=== PATIENT | male | born 1985 | race Caucasian/White ===

== ENCOUNTER → 2018-09-24 | Outpatient (CLI) | payer MEDICAID ==
[~2018-09-24] MED LIST: DOXY100C37 PO; HYDR-3715 PO; NORC1TAB7 PO
== END ==
LOC: M OUTALCOH 08:12
PROVIDERS: ATTEND Psychiatry & Neurology Psychiatry
DX: F11.20 Opioid dependence, uncomplicated (principal)

== ENCOUNTER → 2019-08-04 | Outpatient (CLI) | payer BC ==
[2019-08-04 12:36] LABS: HEMATOCRIT 47.2 % (42.0-52.0); HEMOGLOBIN 15.9 g/dl (13.5-17.5); MEAN CORPUSCULAR HEMOGLOBIN 31.1 pg (27.0-33.0); MEAN CORPUSCULAR HGB CONC 33.7 g/dl (32.0-36.5); MEAN CORPUSCULAR VOLUME 92.2 fl (80.0-96.0); PLATELET COUNT, AUTOMATED 238 10^3/uL (150-450); RED BLOOD COUNT 5.12 10^6/uL (4.30-6.10); WHITE BLOOD COUNT 10.3 10^3/uL (4.0-10.0)
[2019-08-04 13:07] LABS: ALBUMIN 4.2 GM/DL (3.2-5.2); ALT/SGPT 24 U/L (12-78); BILIRUBIN,TOTAL 0.3 MG/DL (0.2-1.0); BLOOD UREA NITROGEN 9 MG/DL (7-18); CALCIUM LEVEL 9.9 MG/DL (8.5-10.1); CARBON DIOXIDE LEVEL 30 MEQ/L (21-32); CHLORIDE LEVEL 106 MEQ/L (98-107); CREATININE FOR GFR 0.99 MG/DL (0.70-1.30); GLOMERULAR FILTRATION RATE > 60.0 (>60); GLUCOSE, FASTING 89 MG/DL (70-100); POTASSIUM SERUM 4.4 MEQ/L (3.5-5.1); SODIUM LEVEL 140 MEQ/L (136-145); TOTAL PROTEIN 7.3 GM/DL (6.4-8.2)
[2019-08-04 13:54] LABS: CHLAMYDIA DNA AMPLIFICATION NEGATIVE (NEGATIVE); GC DNA AMPLIFICATION NEGATIVE (NEGATIVE)
--- NOTE | 2019-08-05 01:03 | ECGEPIP ---
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
[2019-08-05 10:58] LABS: HEPATITIS B SURFACE ANTIGEN NEGATIVE (NEGATIVE); HEPATITIS C VIRUS ABY INDEX 0.1 INDEX (<0.8); HIV 1&2 SCREEN CENTAUR NEGATIVE (NEGATIVE)
== END ==
LOC: M LAB 11:50
PROVIDERS: ATTEND Family Medicine
DX: F11.20 Opioid dependence, uncomplicated (principal)

== ENCOUNTER → 2020-01-22 | Outpatient (CLI) | payer BC, OTHER ==
[2020-01-22 11:04] LABS: INR 0.92; PROTHROMBIN TIME 12.6 SECONDS (12.5-14.3)
[2020-01-22 12:13] LABS: ALT/SGPT 1605 IU/L (0-32)
[2020-01-22 12:14] LABS: LABILE ALKPHOS 175 U/L; STABLE ALKPHOS 37 U/L
[2020-01-22 12:15] LABS: % LABILE ALKALINE PHOSPHATASE 82.5 %; ALBUMIN 3.8 GM/DL (3.2-5.2); BILIRUBIN,TOTAL 1.3 MG/DL (0.2-1.0)
[2020-01-22 15:41] LABS: HEPATITIS B SURFACE ANTIBODY POSITIVE (POSITIVE); HEPATITIS B SURFACE ANTIGEN NEGATIVE (NEGATIVE); HIV 1&2 SCREEN CENTAUR NEGATIVE (NEGATIVE)
[2020-01-26 16:08] LABS: HEPATITIS A IgG TOTAL Positive (Negative)
== END ==
LOC: M LAB 09:10
PROVIDERS: ATTEND Nurse Practitioner Family
DX: Z11.4 Encounter for screening for human immunodeficiency virus [HIV] (principal); Z11.59 Encounter for screening for other viral diseases; Z91.89 Other specified personal risk factors, not elsewhere classified

== ENCOUNTER → 2020-01-28 | Outpatient (REF) | payer BC, OTHER ==
[2020-01-28 17:59] LABS: ALBUMIN 3.8 GM/DL (3.2-5.2); ALT/SGPT 1308 U/L (12-78); BILIRUBIN,DIRECT 0.5 MG/DL (0.0-0.2); BILIRUBIN,TOTAL 0.9 MG/DL (0.2-1.0)
[2020-01-28 18:01] LABS: HEPATITIS C VIRUS ABY INDEX > 11.0 INDEX (<0.8)
[2020-02-02 03:09] LABS: HEPATITIS C QUANTITATION 474380 IU/mL (.); HEPATITIS C VIRUS GENOTYPE 1b (.)
== END ==
LOC: M SFHCPLAZ 10:44
PROVIDERS: ATTEND Internal Medicine Infectious Disease
DX: B17.10 Acute hepatitis C without hepatic coma (principal)

== ENCOUNTER → 2020-03-24 | Outpatient (REF) | payer OTHER ==
[2020-03-24 14:10] LABS: BILIRUBIN,DIRECT 0.1 MG/DL (0.0-0.2); BILIRUBIN,TOTAL 0.3 MG/DL (0.2-1.0); TOTAL PROTEIN 7.2 GM/DL (6.4-8.2)
[2020-03-25 23:10] LABS: HEPATITIS C QUANTITATION 126930 IU/mL (.)
== END ==
LOC: M SFHCPLAZ 10:57
PROVIDERS: ATTEND Internal Medicine Infectious Disease
DX: B17.10 Acute hepatitis C without hepatic coma (principal)

== ENCOUNTER 2020-10-09 13:16 | Inpatient (IN) | payer OTHER ==
[~2020-10-09] VITALS: Ht 167.6 cm; Wt 59.4 kg
[~2020-10-09 13:16] MED LIST changes: -DOXY100C37 PO; +DOXY1CAP62 PO
[2020-10-09 14:35] LABS: BASO # 0.1 10^3/uL (0.0-0.2); BASO % 0.3 % (0.0-1.0); EOS # 0.1 10^3/uL (0.0-0.5); EOS % 0.4 % (0.0-3.0); HEMATOCRIT 42.1 % (42.0-52.0); HEMOGLOBIN 14.1 g/dl (13.5-17.5); LYMPH # 1.4 10^3/uL (1.5-5.0); LYMPH % 8.1 % (24.0-44.0); MEAN CORPUSCULAR HEMOGLOBIN 30.6 pg (27.0-33.0); MEAN CORPUSCULAR HGB CONC 33.5 g/dl (32.0-36.5); MEAN CORPUSCULAR VOLUME 91.3 fl (80.0-96.0); MONO % 5.7 % (2.0-8.0); NEUTROPHILS # 14.6 10^3/uL (1.5-8.5); PLATELET COUNT, AUTOMATED 227 10^3/uL (150-450); RED BLOOD COUNT 4.61 10^6/uL (4.30-6.10); WHITE BLOOD COUNT 17.2 10^3/uL (4.0-10.0)
[2020-10-09 14:58] LABS: AMPHETAMINES LEVEL URINE POSITIVE (NEGATIVE); BARBITURATES URINE NEGATIVE (NEGATIVE); BENZODIAZEPINES URINE NEGATIVE (NEGATIVE); CANNABINOIDS URINE POSITIVE (NEGATIVE); COCAINE METABOLITE URINE NEGATIVE (NEGATIVE); METHADONE URINE POSITIVE (NEGATIVE); OPIATES URINE NEGATIVE (NEGATIVE); PHENCYCLIDINE URINE NEGATIVE (NEGATIVE)
[2020-10-09 15:00] LABS: ALT/SGPT 22 U/L (12-78); BILIRUBIN,DIRECT 0.2 MG/DL (0.0-0.2); BILIRUBIN,TOTAL 0.6 MG/DL (0.2-1.0); BLOOD UREA NITROGEN 9 MG/DL (7-18); CALCIUM LEVEL 9.1 MG/DL (8.5-10.1); CARBON DIOXIDE LEVEL 29 MEQ/L (21-32); CHLORIDE LEVEL 101 MEQ/L (98-107); CREATININE FOR GFR 0.95 MG/DL (0.70-1.30); GLOMERULAR FILTRATION RATE > 60.0 (>60); GLUCOSE, FASTING 90 MG/DL (70-100); LIPASE 35 U/L (73-393); POTASSIUM SERUM 3.7 MEQ/L (3.5-5.1); SODIUM LEVEL 136 MEQ/L (136-145); TOTAL PROTEIN 7.5 GM/DL (6.4-8.2)
[2020-10-09] MEDS ORDERED: NS 1,000 ML IV ONE (15:50)
[2020-10-09] MEDS ORDERED: ISOVUE-370 76% 100ML VIAL As Ordered ONE (15:56)
--- NOTE | 2020-10-09 16:18 | REP ---
INDICATION: concern for pyelonephritis, wbc 17, hematuria. COMPARISON: 07/17/2010 TECHNIQUE: Axial contrast-enhanced images from the lung bases to the pubic symphysis using 100 cc Isovue 370 intravenous contrast material. Coronal and sagittal reformations obtained. This CT examination was performed using the following dose reduction techniques: Automated exposure control, adjustment of mA and/or kv according to the patient's size, and the use of iterative reconstruction technique. FINDINGS: The right kidney demonstrates a striated nephrographic appearance along with hydronephrosis presumed secondary to a 15 mm calculus at the ureteropelvic junction (series 201; images 28-58). Findings suggest obstructive uropathy and pyelonephritis. Lung bases are clear. Visualized heart and pericardium normal. Liver, spleen, pancreas, gallbladder, bilateral adrenal glands and left kidney are normal. The enteric system including stomach, small, and large bowel appears normal. No evidence for obstruction or acute inflammatory process. Normal terminal ileum and appendix are identified in the right lower quadrant. Pelvis demonstrates normal bladder and age-appropriate prostate/seminal vesicles. No ascites. No free air. No intraperitoneal or retroperitoneal adenopathy. Abdominal aorta and vasculature appear normal. Musculoskeletal structures are intact and without acute osseous abnormality. IMPRESSION: 1. Findings involving the right kidney as described above suggest pyelonephritis and obstructive uropathy with a suspected 15 mm calculus at the ureteropelvic junction and striated nephrogram. <Electronically signed by Abel Rodriguez > 10/09/20 [id number]
[2020-10-09] MEDS ORDERED: cefTRIAXone SOD 2 GM in D5W MINI-BAG PLUS 50 ML IV ONE (16:40)
[2020-10-09 16:58] VITALS: BP 151/89
[2020-10-09] MEDS ORDERED: ACETAMINOPHEN TAB 650MG DOSE (2X325MG) PO PRN (17:10)
[2020-10-09] MEDS ORDERED: KETOROLAC 30 MG/ML 1ML VIAL IV PRN (17:10)
[2020-10-09] MEDS ORDERED: ONDANSETRON 4MG/2ML VIAL IV PRN (17:10)
[2020-10-09] MEDS ORDERED: METH10CO PO (17:13)
[2020-10-09 17:46] LABS: RSV AMPLIFICATION NEGATIVE (NEGATIVE)
[2020-10-09] MEDS ORDERED: MORPHINE 4 MG/ML 1ML VIAL/SYRINGE (J2270) IV PRN (17:55)
--- NOTE | 2020-10-09 17:55 | HPEPDOC ---
[facility] Medical History & Physical Date of Admission Oct 09, 2020 Date of Service: Oct 09, 2020 Attending Physician: REMA HARE MD History and Physical CHIEF COMPLAINT: Dysuria, hematuria, flank pain, sweats and chills, nausea, dizziness HISTORY OF PRESENT ILLNESS: 35yo M with a history of kidney stones, Hep C infection, PSUD recently on methadone but currently relapsed who presented with acute dysuria, hematuria, flank pain, sweats and chills, nausea and dizziness. He reports first noticing milky purple like urine this morning with associated dysuria followed by ryan hematuria with ongoing chills and sweats with some nausea, dizziness and flank pain mostly on the R. He otherwise did not record a ryan fever and has no chest pain, palpitations, emesis or diarrhea. In the ED, he was normotensive but tachycardic to 116 and afebrile. Workup was notable for leukocytosis to 17.2, Hgb 14.1, platelets 227, na 136, K 3.7,Cr 0.95, lipase 35, LFTs wnl, while UA was turbid with 3+ leukocyte esterase, with TNTC WBCs adn 84 RBCs, and tox screen was positive for methadone, amphetamines and cannabinoids. CT A/P revealed a 15mm ureteropelvic junciton stone with R hydronephrosis with striated nephrogenic appearance. The ED provider kiersten BCx and gave 1L NS and a dose of ceftriaxone and consulted urology that recommended making him NPO for likely stent placement tonight. He is now being admitted to medicine for sepsis with ongoing pyelonephritis with urology consulted for obstructive uropathy. PAST MEDICAL HISTORY: History of kidney stones Hep C infection, untreated, follows with Dr. Batres, was just diagnosed in 03/2020 with acute infection PSUD recently on methadone, however using PAST SURGICAL HISTORY: SOCIAL HISTORY: PSUD with multiple drugs No alcohol No smoking FAMILY HISTORY: ALLERGIES: Please see below. REVIEW OF SYSTEMS: 10 point ROS was negative except for noted in HPI. HOME MEDICATIONS: Please see below. PHYSICAL EXAMINATION: VITAL SIGNS: see below GENERAL APPEARANCE: NAD HEENT: NCAT, EOMI, PERRLA, MMM CARDIOVASCULAR: RRR, no m/r/g LUNGS: CTAB ABDOMEN: Normoactive sounds, tender right flank and lateral abdomen in band like pattern, no guarding EXTREMITIES: WWP, no LE edema NEUROLOGICAL: CN3-12 intact, grossly nonfocal PSYCHIATRIC: AOx3 LABORATORY DATA and IMAGING: noted above, see below for full details MICROBIOLOGY: Please see below. ASSESSMENT: 35 yo M with a history of kidney stone and PSUD who is being admitted to medicine with sepsis 2/2 pyelonephritis with ongoing obstructive uropathy, pending stent placement by urology this evening. Plan: Sepsis 2/2 pyelonephritis: -s/p ceftriaxone in the ED -switch abx to IV cipro -positive UA, follow up UCx -follow up BCx -s/p 1L NS bolus, will now start 150cc NS per hour while NPO pending OR -tylenol and PRN toradol for pain, morphine IV PRN for breakthrough pain Obstructing ureteropelvic junction stone: -urology consulted, made NPO for stent placement planned for this evening -toradol [id number] for severe pain -morphine 4mg IV Q8H PRN for breakthrough severe pain PSUD: -recently using, unclear about methadone, initially denied using, then later admitted after tox screen. will not start any meds and monitor for now DVT ppx; TEDs and SCDs Vital Signs Vital Signs Date Time Temp Pulse Resp B/P (MAP) Pulse Ox O2 Delivery O2 Flow Rate FiO2 10/09/20 14:29 99.3 10/09/20 14:26 10/09/20 13:17 111 16 98 Room Air Laboratory Data Labs 24H Laboratory Tests 2 10/09/20 14:16: Urine Color YELLOW, Urine Appearance CLOUDYH, Urine pH 5.0, Urine Specific [place] 1.021, Urine Protein 2+H, Urine Glucose (UA) NEGATIVE, Urine Ketones TRACEH, Urine Blood 2+H, Urine Nitrite NEGATIVE, Urine Bilirubin NEGATIVE, Urine Urobilinogen 0.2, Urine Leukocyte Esterase 3+H, Urine WBC (Auto) TNTCH, Urine RBC (Auto) 84H, Urine Hyaline Casts (Auto) 0, Urine Bacteria (Auto) NEGATIVE, Urine Squamous Epithelial Cells 0, Urine Transitional Epithelial Cells 3, Urine Mucus (Auto) SMALL, Urine Sperm (Auto) 10/09/20 14:23: Immature Granulocyte % (Auto) 0.5, Neutrophils (%) (Auto) 85.0H, Lymphocytes (%) (Auto) 8.1L, Monocytes (%) (Auto) 5.7, Eosinophils (%) (Auto) 0.4, Basophils (%) (Auto) 0.3, Neutrophils # (Auto) 14.6H, Lymphocytes # (Auto) 1.4L, Monocytes # (Auto) 1.0H, Eosinophils # (Auto) 0.1, Basophils # (Auto) 0.1, Nucleated Red Blood Cells % (auto) 0.0, Anion Gap 6L, Glomerular Filtration Rate > 60.0, Calcium Level 9.1, Total Bilirubin 0.6, Direct Bilirubin 0.2, Aspartate Amino Transf (AST/SGOT) 21, Alanine Aminotransferase (ALT/SGPT) 22, Alkaline Phosphatase 76, Total Protein 7.5, Albumin 4.0, Albumin/Globulin Ratio 1.1, Lipase 35L 10/09/20 14:27: Urine Opiates Screen NEGATIVE, Urine Methadone Screen POSITIVEH, Urine Barbiturates Screen NEGATIVE, Urine Phencyclidine Screen NEGATIVE, Urine Amphetamines Screen POSITIVEH, Urine Benzodiazepines Screen NEGATIVE, Urine Cocaine Metabolite Screen NEGATIVE, Urine Cannabinoids Screen POSITIVEH 10/09/20 15:31: Lactic Acid Level 1.1 10/09/20 17:04: CBC/BMP Laboratory Tests 10/09/20 14:23 Microbiology Microbiology 10/09/20 Urine Culture, Received Pending Home Medications Scheduled Methadone HCl (Methadone HCl) 10 Mg/1 Ml Oral.conc, 90 MG PO DAILY NEED TO VERIFY DOSE WITH CREDO Allergies Coded Allergies: No Known Allergies (Unverified , 02/03/17) A-FIB/CHADSVASC A-FIB History Current/History of A-Fib/PAF?: No Current PO Anticoag Therapy: No Age/Risk Factor Scoring CHADSVASC: CHADSVASC Response (Comments) Value Age Risk Factor Age < 65 years old 0 Gender Risk Factor Male 0 Hx of CHF No 0 Hx of HTN No 0 Hx of Stroke/TIA/or VTE No 0 Hx of Diabetes No 0 Hx of Vascular Disease No 0 Total 0 Treatment Treatment ordered: NONE Reason Anticoagulant not given: Not indicated/[id number] REMA HARE MD Oct 09, 2020 17:55
[2020-10-09] MEDS ORDERED: NS 1,000 ML IV SCH (18:00)
[2020-10-09 19:50] LABS: CHLAMYDIA DNA AMPLIFICATION NEGATIVE (NEGATIVE); GC DNA AMPLIFICATION NEGATIVE (NEGATIVE)
--- NOTE | 2020-10-09 20:08 | SMCUROLCON ---
Urology Consultation General Date of Consultation 10/09/20 Reason For Consultation This patient is seen for Right Hydronephrosis with a 1.5 cm obstructing calculus c/w pyelonephritis History of Present Illness History and Physical CHIEF COMPLAINT: Right UPJ stone, hydronephrosis and pyelonephritis HISTORY OF PRESENT ILLNESS: 35yo M with a history of kidney stones, PSUD recently on methadone who presented with dysuria, hematuria, flank pain, sweats and chills, nausea and dizziness. He tachycardicand afebrile but had leukocytosis to 17.2, Hgb 14.1, platelets 227, na 136, K 3.7,Cr 0.95, lipase 35, LFTs wnl, while UA was turbid with 3+ leukocyte esterase, with TNTC WBCs and 84 RBCs, and tox screen was positive for methadone, amphetamines and cannabinoids. CT A/P revealed a 1.5cm ureteropelvic junction stone with R hydronephrosis . Pt was being admitted for antibiotics, hydration and ureteral stenting. He ripped out his IV and left AMA. He was strongly warned about the seriousness including sepsis and but left anyway. Medications Current Medications Current Medications Medications (Trade) Dose Ordered Sig/Patricio Route PRN Reason Start Time Stop Time Status Last Admin Dose Admin Acetaminophen (Tylenol Tab) 650 mg Q4H PRN PO MILD PAIN or TEMP > 101 10/09/20 17:10 Ciprofloxacin 400 mg/IV Miscellaneous Supplies 200 ml @ 200 mls/hr Q12H IV 10/09/20 21:00 Home Med (Med Rec Complete!) ASDIRECTED XX 10/09/20 17:20 10/09/20 17:33 DC Ketorolac Tromethamine (ToRADol) 30 mg Q6H PRN IV KIDNEY STONE PAIN 10/09/20 17:10 10/14/20 17:09 Morphine Sulfate (Morphine Sulfate Inj) 4 mg Q8HP PRN IV breakthrough severe pain 10/09/20 17:55 Ondansetron HCl (ZOFRAN INJection) 4 mg Q6H PRN IV NAUSEA 10/09/20 17:10 Sodium Chloride 1,000 ml @ 150 mls/hr Q6H40M IV 10/09/20 18:00 Allergies Allergies: Coded Allergies: No Known Allergies (Unverified , 02/03/17) Vital Signs/I&O Vital Signs Date Time Temp Pulse Resp B/P (MAP) Pulse Ox O2 Delivery O2 Flow Rate FiO2 10/09/20 18:41 100.4 10/09/20 16:58 88 18 151/89 (109) 100 Room Air Laboratory Data 24H Labs Laboratory Tests 2 10/09/20 14:16: Urine Color YELLOW, Urine Appearance CLOUDYH, Urine pH 5.0, Urine Specific [place] 1.021, Urine Protein 2+H, Urine Glucose (UA) NEGATIVE, Urine Ketones TRACEH, Urine Blood 2+H, Urine Nitrite NEGATIVE, Urine Bilirubin NEGATIVE, Urine Urobilinogen 0.2, Urine Leukocyte Esterase 3+H, Urine WBC (Auto) TNTCH, Urine RBC (Auto) 84H, Urine Hyaline Casts (Auto) 0, Urine Bacteria (Auto) NEGATIVE, Urine Squamous Epithelial Cells 0, Urine Transitional Epithelial Cells 3, Urine Mucus (Auto) SMALL, Urine Sperm (Auto) , Chlamydia trachomatis DNA (ELLEN) NEGA TIVE, Neisseria gonorrhoeae DNA (ELLEN) NEGATIVE 10/09/20 14:23: Immature Granulocyte % (Auto) 0.5, Neutrophils (%) (Auto) 85.0H, Lymphocytes (%) (Auto) 8.1L, Monocytes (%) (Auto) 5.7, Eosinophils (%) (Auto) 0.4, Basophils (%) (Auto) 0.3, Neutrophils # (Auto) 14.6H, Lymphocytes # (Auto) 1.4L, Monocytes # (Auto) 1.0H, Eosinophils # (Auto) 0.1, Basophils # (Auto) 0.1, Nucleated Red Blood Cells % (auto) 0.0, Anion Gap 6L, Glomerular Filtration Rate > 60.0, Calcium Level 9.1, Total Bilirubin 0.6, Direct Bilirubin 0.2, Aspartate Amino Transf (AST/SGOT) 21, Alanine Aminotransferase (ALT/SGPT) 22, Alkaline Phosphatase 76, Total Protein 7.5, Albumin 4.0, Albumin/Globulin Ratio 1.1, Lipase 35L 10/09/20 14:27: Urine Opiates Screen NEGATIVE, Urine Methadone Screen POSITIVEH, Urine Barbiturates Screen NEGATIVE, Urine Phencyclidine Screen NEGATIVE, Urine Amphet amines Screen POSITIVEH, Urine Benzodiazepines Screen NEGATIVE, Urine Cocaine Metabolite Screen NEGATIVE, Urine Cannabinoids Screen POSITIVEH 10/09/20 15:31: Lactic Acid Level 1.1 10/09/20 17:04: Coronavirus (COVID-19)(PCR) NEGATIVE, Influenza Type A (RT-PCR) NEGATIVE, Influenza Type B (RT-PCR) NEGATIVE, Respiratory Syncytial Virus (PCR) NEGATIVE 10/09/20 17:25: POC Troponin I (Misc) 0.00 CBC/BMP Laboratory Tests 10/09/20 14:23 Microbiology Microbiology 10/09/20 Blood Culture, Received Pending 10/09/20 Blood Culture, Received Pending 10/09/20 Urine Culture, Received Pending DI WALKER M.D. Oct 09, 2020 20:08
[2020-10-09] MEDS ORDERED: CIPROFLOXACIN 400 MG in IV 1 EA IV SCH (21:00)
[2020-10-10] MEDS ORDERED: CEFU1TAB20 PO (07:32)
[2020-10-10] MEDS ORDERED: CIPR-249 PO (07:32)
--- NOTE | 2020-10-10 07:45 | DS.PDOC ---
Discharge Summary General Date of Admission Oct 09, 2020 at 17:07 Date of Discharge 10/09/2020 Attending Physician: REMA HARE MD Discharge Summary PROCEDURES PERFORMED DURING STAY: None ADMITTING DIAGNOSES: Obstructive nephrolithiasis with R sided hydronephrosis Pyelonephritis Sepsis DISCHARGE DIAGNOSES: Obstructive nephrolithiasis with R sided hydronephrosis Pyelonephritis Sepsis PSUD COMPLICATIONS/CHIEF COMPLAINT: Hydroephrosis W/Onstructing Calculus,Pyeloneph riti. HISTORY OF PRESENT ILLNESS: 35yo M with a history of kidney stones, Hep C infection, PSUD recently on methadone but currently relapsed who presented with acute dysuria, hematuria, flank pain, sweats and chills, nausea and dizziness. He reported first noticing milky purple like urine this morning with associated dysuria followed by ryan hematuria with ongoing chills and sweats with some nausea, dizziness and flank pain mostly on the R. He otherwise did not record a ryan fever and has no chest pain, palpitations, emesis or diarrhea. HOSPITAL COURSE In the ED, he was normotensive but tachycardic to 116 and afebrile. Workup was notable for leukocytosis to 17.2, Hgb 14.1, platelets 227, na 136, K 3.7,Cr 0.95, lipase 35, LFTs wnl, while UA was turbid with 3+ leukocyte esterase, with TNTC WBCs adn 84 RBCs, and tox screen was positive for methadone, amphetamines and cannabinoids. CT A/P revealed a 15mm ureteropelvic junciton stone with R hydronephrosis with striated nephrogenic appearance. The ED provider kiersten BCx and gave 1L NS and a dose of ceftriaxone and consulted urology that recommended making him NPO for stent placement and I placed orders to admit to him medicine for sepsis with ongoing pyelonephritis with urology consulted for obstructive uropathy. He unfortunately left AMA after demanding opioid therapies. DISCHARGE MEDICATIONS: Please see below. ALLERGIES: Please see below. PHYSICAL EXAMINATION ON DISCHARGE: Was not present when he left AMA LABORATORY DATA: Please see below. IMAGING: CT A/P: The right kidney demonstrates a striated nephrographic appearance along with hydronephrosis presumed secondary to a 15 mm calculus at the ureteropelvic junction (series 201; images 28-58). Findings suggest obstructive uropathy and pyelonephritis. Lung bases are clear. Visualized heart and pericardium normal. Liver, spleen, pancreas, gallbladder, bilateral adrenal glands and left kidney are normal. The enteric system including stomach, small, and large bowel appears normal. No evidence for obstruction or acute inflammatory process. Normal terminal ileum and appendix are identified in the right lower quadrant. Pelvis demonstrates normal bladder and age-appropriate prostate/seminal vesicles. No ascites. No free air. No intraperitoneal or retroperitoneal adenopathy. Abdominal aorta and vasculature appear normal. Musculoskeletal structures are intact and without acute osseous abnormality. IMPRESSION: 1. Findings involving the right kidney as described above suggest pyelonephritis and obstructive uropathy with a suspected 15 mm calculus at the ureteropelvic junction and striated nephrogram. PROGNOSIS: Good if he seeks medical attention for the above noted acute medical problems ACTIVITY: As tolerated DIET: Regular DISCHARGE PLAN: AMA DISPOSITION: AMA DISCHARGE INSTRUCTIONS: AMA ITEMS TO FOLLOWUP ON ON OUTPATIENT: Pyelonephritis Sepsis Obstructive nephrolithiasis DISCHARGE CONDITION: stable TIME SPENT ON DISCHARGE: 34 minutes. Vital Signs/I&Os Vital Signs Date Time Temp Pulse Resp B/P (MAP) Pulse Ox O2 Delivery O2 Flow Rate FiO2 10/09/20 18:41 100.4 10/09/20 16:58 88 18 151/89 (109) 100 Room Air I&O- Last 24 Hours up to 6 AM 10/10/20 06:00 Intake Total 150 ml Balance 150 ml Laboratory Data Labs 24H Laboratory Tests 2 10/09/20 14:16: Urine Color YELLOW, Urine Appearance CLOUDYH, Urine pH 5.0, Urine Specific [place] 1.021, Urine Protein 2+H, Urine Glucose (UA) NEGATIVE, Urine Ketones TRACEH, Urine Blood 2+H, Urine Nitrite NEGATIVE, Urine Bilirubin NEGATIVE, Urine Urobilinogen 0.2, Urine Leukocyte Esterase 3+H, Urine WBC (Auto) TNTCH, Urine RBC (Auto) 84H, Urine Hyaline Casts (Auto) 0, Urine Bacteria (Auto) NEGATIVE, Urine Squamous Epithelial Cells 0, Urine Transitional Epithelial Cells 3, Urine Mucus (Auto) SMALL, Urine Sperm (Auto) , Chlamydia trachomatis DNA (ELLEN) NEGATIVE, Neisseria gonorrhoeae DNA (ELLEN) NEGATIVE 10/09/20 14:23: Immature Granulocyte % (Auto) 0.5, Neutrophils (%) (Auto) 85.0H, Lymphocytes (%) (Auto) 8.1L, Monocytes (%) (Auto) 5.7, Eosinophils (%) (Auto) 0.4, Basophils (%) (Auto) 0.3, Neutrophils # (Auto) 14.6H, Lymphocytes # (Auto) 1.4L, Monocytes # (Auto) 1.0H, Eosinophils # (Auto) 0.1, Basophils # (Auto) 0.1, Nucleated Red Blood Cells % (auto) 0.0, Anion Gap 6L, Glomerular Filtration Rate > 60.0, [place] cium Level 9.1, Total Bilirubin 0.6, Direct Bilirubin 0.2, Aspartate Amino Transf (AST/SGOT) 21, Alanine Aminotransferase (ALT/SGPT) 22, Alkaline Phosphatase 76, Total Protein 7.5, Albumin 4.0, Albumin/Globulin Ratio 1.1, Lipase 35L 10/09/20 14:27: Urine Opiates Screen NEGATIVE, Urine Methadone Screen POSITIVEH, Urine Barbiturates Screen NEGATIVE, Urine Phencyclidine Screen NEGATIVE, Urine Amphetamines Screen POSITIVEH, Urine Benzodiazepines Screen NEGATIVE, Urine Cocaine Metabolite Screen NEGATIVE, Urine Cannabinoids Screen POSITIVEH 10/09/20 15:31: Lactic Acid Level 1.1 10/09/20 17:04: Coronavirus (COVID-19)(PCR) NEGATIVE, Influenza Type A (RT-PCR) NEGATIVE, Influenza Type B (RT-PCR) NEGATIVE, Respiratory Syncytial Virus (PCR) NEGATIVE 10/09/20 17:25: POC Troponin I (Misc) 0.00 CBC/BMP Laboratory Tests 10/09/20 14:23 Microbiology Microbiology 10/09/20 Blood Culture, Received Pending 10/09/20 Blood Culture, Received Pending 10/09/20 Urine Culture, Received Pending Discharge Medications Scheduled Cefuroxime Axetil (Cefuroxime) 250 Mg Tablet, 2 TAB PO BID, (Reported) Ciprofloxacin HCl (Cipro) 500 Mg Tablet, 1 TAB PO BID, (Reported) Methadone HCl (Methadone HCl) 10 Mg/1 Ml Oral.conc, 90 MG PO DAILY, (Reported) NEED TO VERIFY DOSE WITH CREDO Allergies Coded Allergies: No Known Allergies (Unverified , 02/03/17) REMA HARE MD Oct 10, 2020 07:45
[2020-10-10] MEDS ORDERED: ISOVUE-300 61% 50ML VIAL As Ordered ONE (14:36)
[2020-10-10] MEDS ORDERED: LIDOCAINE 1% MDV 20ML VIAL As Ordered ONE (14:36)
== END 2020-10-09 18:40 | disposition left against medical advice (07) | DRG 720 ==
LOC: M ED 13:16 → M ED INP 17:07 → ENRESERV 18:20
PROVIDERS: ADMIT Internal Medicine; ATTEND Internal Medicine
DX: A41.9 Sepsis, unspecified organism (principal); N13.6 Pyonephrosis; F19.10 Other psychoactive substance abuse, uncomplicated; B19.20 Unspecified viral hepatitis C without hepatic coma

== ENCOUNTER 2020-10-10 07:17 | Inpatient (IN) | payer OTHER ==
[~2020-10-10] VITALS: Ht 152.4 cm; Wt 60.4 kg
[~2020-10-10 07:17] MED LIST changes: +METH10CO PO
[2020-10-10] MEDS ORDERED: CIPR-249 PO (07:32)
[2020-10-10] MEDS ORDERED: CEFU1TAB20 PO (07:32)
[2020-10-10] MEDS ORDERED: NS 1,000 ML IV ONE (07:55)
[2020-10-10] MEDS ORDERED: ONDANSETRON 4MG/2ML VIAL IV ONE (08:15)
[2020-10-10 08:35] LABS: BASO % 0.4 % (0.0-1.0); EOS # 0.1 10^3/uL (0.0-0.5); EOS % 0.9 % (0.0-3.0); HEMATOCRIT 44.3 % (42.0-52.0); HEMOGLOBIN 14.7 g/dl (13.5-17.5); LYMPH % 19.6 % (24.0-44.0); MEAN CORPUSCULAR HEMOGLOBIN 30.8 pg (27.0-33.0); MEAN CORPUSCULAR HGB CONC 33.2 g/dl (32.0-36.5); MEAN CORPUSCULAR VOLUME 92.9 fl (80.0-96.0); MONO # 0.6 10^3/uL (0.0-0.8); MONO % 5.6 % (2.0-8.0); NEUTROPHILS # 7.6 10^3/uL (1.5-8.5); NEUTROPHILS % 73.2 % (36.0-66.0); PLATELET COUNT, AUTOMATED 249 10^3/uL (150-450); RED BLOOD COUNT 4.77 10^6/uL (4.30-6.10); WHITE BLOOD COUNT 10.4 10^3/uL (4.0-10.0)
[2020-10-10 09:04] LABS: ALBUMIN 3.9 GM/DL (3.2-5.2); BILIRUBIN,DIRECT 0.1 MG/DL (0.0-0.2); BILIRUBIN,TOTAL 0.4 MG/DL (0.2-1.0); C REACTIVE PROTEIN QUANTITATIV 7.03 MG/DL (0.00-0.30)
[2020-10-10] MEDS ORDERED: ACETAMINOPHEN TAB 650MG DOSE (2X325MG) PO PRN (09:20)
--- NOTE | 2020-10-10 09:40 | HPEPDOC ---
[facility] Medical History & Physical Date of Admission Oct 10, 2020 Date of Service: Oct 10, 2020 History and Physical CHIEF COMPLAINT: R flank pain, with known R UPJ obstructing stone with hydronephrosis and pyelonephritis HISTORY OF PRESENT ILLNESS: 35yo M with a history of kidney stones, Hep C infection, PSUD recently on methadone but currently relapsed and using drugs that he will not divulge at this time point whom I admitted yesterday for R UPJ obstructing stone with hydronephrosis and pyelonephritis with sepsis after he presented with acute dysuria, hematuria, flank pain, sweats and chills, nausea and dizziness. He otherwise did not record a ryan fever and has no chest pain, palpitations, emesis or diarrhea. Initial workup yesterday was notable for leukocytosis to 17.2, Hgb 14.1, platelets 227, na 136, K 3.7,Cr 0.95, lipase 35, LFTs wnl, while UA was turbid with 3+ leukocyte esterase, with TNTC WBCs adn 84 RBCs, and tox screen was positive for methadone, amphetamines and cannabinoids. CT A/P revealed a 15mm ureteropelvic junciton stone with R hydronephrosis with striated nephrogenic appearance. The ED provider kiersten BCx and gave 1L NS and a dose of ceftriaxone and consulted urology that recommended making him NPO for stent placement immediately. He was admitted to medicine for sepsis with ongoing pyelonephritis with urology consulted for obstructive uropathy but left AMA. He apparently went [facility] for the same, and was given cipro and ceftin and recommended to re-present to [facility] for urology evaluation and thus his return. Today, he WBC is now 10.4, hgb 14.7, platelets 249, CRP 7.03 and BMP grossly unremarkable and is now being admitted to medicine with the same plan as prior to consult urology, hydrate and antibiotics. PAST MEDICAL HISTORY: History of kidney stones Hep C infection, untreated, follows with Dr. Batres, was just diagnosed in 03/2020 with acute infection PSUD recently on methadone, however using PAST SURGICAL HISTORY: None SOCIAL HISTORY: PSUD with multiple drugs No alcohol No smoking FAMILY HISTORY: ALLERGIES: Please see below. REVIEW OF SYSTEMS: 10 point ROS was negative except for noted in HPI. HOME MEDICATIONS: Please see below. PHYSICAL EXAMINATION: VITAL SIGNS: see below GENERAL APPEARANCE: NAD HEENT: NCAT, EOMI, PERRLA, MMM CARDIOVASCULAR: RRR, no m/r/g LUNGS: CTAB ABDOMEN: Normoactive sounds, tender right flank on percussion, but improved from prior, no guarding EXTREMITIES: WWP, no LE edema NEUROLOGICAL: CN3-12 intact, grossly nonfocal PSYCHIATRIC: AOx3 LABORATORY DATA and IMAGING: noted above, see below for full details MICROBIOLOGY: Please see below. ASSESSMENT: 35 yo M with a history of kidney stone and PSUD who is being ad mitted to medicine with sepsis 2/2 pyelonephritis with ongoing obstructive uropathy, pending urology evaluation for possible stent placement. Plan: Sepsis 2/2 pyelonephritis: -IV cipro -positive UA, follow up UCx from 10/09 -follow up BCx -150cc NS per hour while NPO pending urology evaluation -tylenol and PRN toradol for pain -will get renal US to see status of stone and hydro since pain has improved Obstructing ureteropelvic junction stone: -urology consulted, made NPO for possible stent placement -toradol 30Q6HP for severe pain -will get renal US to see status of stone and hydro since pain has improved PSUD: -recently using, unclear about methadone, initially denied using, then later ad mitted after tox screen. will not start any addiction meds and monitor for now DVT ppx; TEDs and SCDs Vital Signs Vital Signs Date Time Temp Pulse Resp B/P (MAP) Pulse Ox O2 Delivery O2 Flow Rate FiO2 10/10/20 09:16 83 16 147/97 (114) 99 Room Air 10/10/20 07:18 98.7 Laboratory Data Labs 24H Laboratory Tests 2 10/10/20 08:17: Immature Granulocyte % (Auto) 0.3, Neutrophils (%) (Auto) 73.2H, Lymphocytes (%) (Auto) 19.6L, Monocytes (%) (Auto) 5.6, Eosinophils (%) (Auto) 0.9, Basophils (%) (Auto) 0.4, Neutrophils # (Auto) 7.6, Lymphocytes # (Auto) 2.0, Monocytes # (Auto) 0.6, Eosinophils # (Auto) 0.1, Basophils # (Auto) 0.0, Nucleated Red Blood Cells % (auto) 0.0, Lactic Acid Level 1.5, Total Bilirubin 0.4, Direct Bilirubin 0.1, Aspartate Amino Transf (AST/SGOT) 19, Alanine Aminotransferase (ALT/SGPT) 24, Alkaline Phosphatase 79, C-Reactive Protein, Quantitative 7.03H, Total Protein 8.0, Albumin 3.9, Albumin/Globulin Ratio 1.0, Lipase 61L 10/10/20 08:18: POC Glucose (Misc Panel) 100, POC Sodium (Misc Panel) 140, POC Potassium (Misc Panel) 3.6, POC Chloride (Misc Panel) 97L, POC Total CO2 (Misc Panel) 29.0H, POC Blood Urea Nitrogen (Misc Panel 9, POC Ionized Calcium (Misc Panel) 4.9, POC Creatinine (Misc Panel) 1.0, POC Hematocrit (Misc Panel) 44.0 10/10/20 08:37: Coronavirus (COVID-19)(PCR) NEGATIVE CBC/BMP Laboratory Tests 10/10/20 08:17 Microbiology Microbiology 10/10/20 Blood Culture, Received Pending 10/10/20 Blood Culture, Received Pending Home Medications Scheduled Cefuroxime Axetil (Cefuroxime) 250 Mg Tablet, 2 TAB PO BID Ciprofloxacin HCl (Cipro) 500 Mg Tablet, 1 TAB PO BID Methadone HCl (Methadone HCl) 10 Mg/1 Ml Oral.conc, 90 MG PO DAILY NEED TO VERIFY DOSE WITH CREDO Allergies Coded Allergies: No Known Allergies (Unverified , 02/03/17) A-FIB/CHADSVASC A-FIB History Current/History of A-Fib/PAF?: No Current PO Anticoag Therapy: No Age/Risk Factor Scoring CHADSVASC: CHADSVASC Response (Comments) Value Age Risk Factor Age < 65 years old 0 Gender Risk Factor Male 0 Hx of CHF No 0 Hx of HTN No 0 Hx of Stroke/TIA/or VTE No 0 Hx of Diabetes No 0 Hx of Vascular Disease No 0 Total 0 Treatment Treatment ordered: NONE Reason Anticoagulant not given: Not indicated/[id number] REMA HARE MD Oct 10, 2020 09:40
[2020-10-10] MEDS: CIPROFLOXACIN 400 MG in IV 1 EA IV SCH ×2 (09:44→21:55)
[2020-10-10] MEDS: NS 1,000 ML IV SCH ×3 (09:44→22:40)
--- NOTE | 2020-10-10 10:36 | REP ---
INDICATION: obstructing renal calculus R COMPARISON: CT dated 10/09/2020 TECHNIQUE: Real time bledsoe scale ultrasound examination using curved array transducer. FINDINGS: Right kidney measures 10.1 x 5.1 x 5.1 cm and demonstrates moderate hydronephrosis unchanged compared to CT. The obstructing calculus in the ureteropelvic junction is not visible. The left kidney is normal and measures 10.4 x 6.6 x 5.0 cm. The bladder is normal. IMPRESSION: 1. Moderate right hydronephrosis consistent with findings on recent CT. No significant change. The obstructing calculus is not identified by ultrasound. <Electronically signed by Abel Rodriguez > 10/10/20 1038
[2020-10-10 11:00] VITALS: BP 134/82
--- NOTE | 2020-10-10 11:18 | SMCUROLCON ---
Urology Consultation General Date of Consultation 10/10/20 Reason For Consultation This patient is seen for Hydronephrosis W/ Obstructing Calculus, Polysubsta. History of Present Illness right upj stone Medications Current Medications Current Medications Medications (Trade) Dose Ordered Sig/Patricio Route PRN Reason Start Time Stop Time Status Last Admin Dose Admin Acetaminophen (Tylenol Tab) 650 mg Q4H PRN PO MILD PAIN or TEMP > 101 10/10/20 09:20 Ciprofloxacin 400 mg/IV Miscellaneous Supplies 200 ml @ 200 mls/hr Q12H IV 10/10/20 10:00 10/10/20 09:44 Home Med (Med Rec Complete!) ASDIRECTED XX 10/10/20 09:55 10/10/20 09:55 DC Ketorolac Tromethamine (ToRADol) 30 mg Q6H PRN IV KIDNEY STONE PAIN 10/10/20 09:20 10/15/20 09:19 Ondansetron HCl (ZOFRAN INJection) 4 mg Q6H PRN IV NAUSEA 10/10/20 14:00 Sodium Chloride 1,000 ml @ 150 mls/hr Q6H40M IV 10/10/20 09:20 10/10/20 09:44 Allergies Allergies: Coded Allergies: No Known Allergies (Unverified , 02/03/17) Vital Signs/I&O Vital Signs Date Time Temp Pulse Resp B/P (MAP) Pulse Ox O2 Delivery O2 Flow Rate FiO2 10/10/20 11:00 97.1 83 18 134/82 (99) 99 10/10/20 10:23 Room Air Laboratory Data 24H Labs Laboratory Tests 2 10/10/20 08:17: Immature Granulocyte % (Auto) 0.3, Neutrophils (%) (Auto) 73.2H, Lymphocytes (%) (Auto) 19.6L, Monocytes (%) (Auto) 5.6, Eosinophils (%) (Auto) 0.9, Basophils (%) (Auto) 0.4, Neutrophils # (Auto) 7.6, Lymphocytes # (Auto) 2.0, Monocytes # (Auto) 0.6, Eosinophils # (Auto) 0.1, Basophils # (Auto) 0.0, Nucleated Red Blood Cells % (auto) 0.0, Lactic Acid Level 1.5, Total Bilirubin 0.4, Direct Bilirubin 0.1, Aspartate Amino Transf (AST/SGOT) 19, Alanine Aminotransferase (ALT/SGPT) 24, Alkaline Phosphatase 79, C-Reactive Protein, Quantitative 7.03H, Total Protein 8.0, Albumin 3.9, Albumin/Globulin Ratio 1.0, Lipase 61L 10/10/20 08:18: POC Glucose (Misc Panel) 100, POC Sodium (Misc Panel) 140, POC Potassium (Misc Panel) 3.6, POC Chloride (Misc Panel) 97L, POC Total CO2 (Misc Panel) 29.0H, POC Blood Urea Nitrogen (Misc Panel 9, POC Ionized Calcium (Misc Panel) 4.9, POC Cre atinine (Misc Panel) 1.0, POC Hematocrit (Misc Panel) 44.0 10/10/20 08:37: Coronavirus (COVID-19)(PCR) NEGATIVE 10/10/20 09:50: Urine Color YELLOW, Urine Appearance CLOUDYH, Urine pH 6.0, Urine Specific [place] 1.015, Urine Protein 1+H, Urine Glucose (UA) NEGATIVE, Urine Ketones NEGATIVE, Urine Blood 1+H, Urine Nitrite NEGATIVE, Urine Bilirubin NEGATIVE, Ur ine Urobilinogen 0.2, Urine Leukocyte Esterase 3+H, Urine WBC (Auto) 176H, Urine RBC (Auto) 14H, Urine Hyaline Casts (Auto) 0, Urine Bacteria (Auto) NEGATIVE, Urine Squamous Epithelial Cells 0, Urine Yeast-Like Cells (Auto) SMALLH, Urine Sperm (Auto) CBC/BMP Laboratory Tests 10/10/20 08:17 Microbiology Microbiology 10/10/20 Urine Culture, Received Pending 10/10/20 Blood Culture, Received Pending 10/10/20 Blood Culture, Received Pending Assessment Obstructing right upj stone large in size. Complicated uti. I reviewed ct. Stone is such that a nephrostomy tube is a better option than a stent. I would likely not be able to get a wire and stent beyond the stone. It is large and impacted. MARK PARSONS MD Oct 10, 2020 11:18
[2020-10-10 12:29] LABS: INR 0.99; PROTHROMBIN TIME 13.3 SECONDS (12.5-14.3)
[2020-10-10 12:30] LABS: PARTIAL THROMBOPLASTIN TIME 33.7 SECONDS (24.2-38.5)
[2020-10-10] MEDS ORDERED: ONDANSETRON 4MG/2ML VIAL IV PRN ×2 (14:00→16:05)
--- NOTE | 2020-10-10 14:11 | REP ---
INDICATION: KIDNEY STONE COMPARISON: Comparison is made with CT study of the abdomen and pelvis from October 09, 2020 and the renal sonography from this date, October 10, 2020.. TECHNIQUE: Helical scanning is acquired and 3 mm axial images were reformatted. Coronal and sagittal MPR images were generated and reviewed. FINDINGS: Preliminary digital rn lactation radiograph demonstrates a large right mid abdominal calculus and a loop of air-filled mildly dilated central abdominal small bowel which may reflect mild ileus. The lung bases remain clear on axial CT images. The liver and the spleen normal in size homogeneous in texture. No abnormality is noted in the gallbladder. Normal adrenal glands are seen. There is no evidence of left-sided hydronephrosis or intrarenal calculus on the left. On the right there is moderate intrarenal hydronephrosis again seen as noted on yesterday's contrast enhanced CT study. There is an intrarenal calculus in the lower pole collecting system the right kidney measuring 3 mm. In addition, there is a large obstructing calculus in the renal pelvis at the ureteropelvic junction. This measures 1.9 cm in greatest diameter on sagittal MPR images. There is mild Yvonne nephric edema. No extra renal fluid collection is observed. Normal appendix is seen. There are 2 or 3 prostate calcifications. Urinary bladder and seminal vesicles are unremarkable. On bone window settings, incidental note is made of a broad-based central focal disc protrusion at the L1-2 disc with calcification of the disc margin. This appears to indent the ventral aspect of the spinal canal. IMPRESSION: Persistent moderate right-sided hydronephrosis due to an obstructing 1.9 cm right renal pelvic calculus. There is also a small intrarenal calculus on the right. There is a broad-based L1-2 central posterior disc protrusion noted incidentally. <Electronically signed by Yash Heller > 10/10/20 0736
[2020-10-10] MEDS ORDERED: LIDOCAINE 2% 100MG/5ML SDV (FOR ANES.) As Ordered ONE (14:18)
[2020-10-10] MEDS ORDERED: MIDAZOLAM INJ 2MG/2ML VIAL (J2250 PER 1MG) As Ordered ONE (14:18)
[2020-10-10] MEDS ORDERED: fentaNYL 100 MCG/2 ML INJECTION (J3010) As Ordered ONE (14:18)
[2020-10-10] MEDS ORDERED: propofoL 200 MG/20 ML VIAL As Ordered ONE ×3 (14:18→15:07)
[2020-10-10] MEDS ORDERED: ceFAZolin 1GM VIAL (J0690 PER 500MG) As Ordered ONE (14:33)
--- NOTE | 2020-10-10 15:01 | IRHP ---
[facility] IR Pre-Procedure H & P General Date of Service: Oct 10, 2020 Procedure: Same Day Surgery Interval History and Physical I have seen the patient and reviewed last H & P performed within 30 days. There is no significant interval change. Patient is okay for procedure. History of Present Illness Chief Complaint The patient is a 35-year-old male admitted with a reason for visit of Hydronephrosis W/ Obstructing Calculus, Polysubsta. PRE-PROCEDURE DIAGNOSIS: Right kidney stone. UPJ obstruction. Hydronephrosis. Pain. HEART: Normal rate. LUNGS: Normal breathing at rest. Plan sedation w/anesthediology Allergies Coded Allergies: No Known Allergies (Unverified , 02/03/17) Home Medications Scheduled Methadone HCl (Methadone HCl), 90 MG PO DAILY, (Reported) Discontinued Medications Cefuroxime Axetil (Cefuroxime), 2 TAB PO BID, (Reported) Discontinued Reason: Pt states not taking Ciprofloxacin HCl (Cipro), 1 TAB PO BID, (Reported) Discontinued Reason: Pt states not taking Doxycycline Monohydrate (Doxycycline Monohydrate), 100 MG PO Q12H Discontinued Reason: Pt states not taking Hydrocodone/Acetaminophen (Bruce 5-325 Tablet), 1 TAB PO Q6H PRN for PAIN Discontinued Reason: Pt states not taking VS, I&O, 24H, Fishbone Vital Signs/I&O Vital Signs Date Time Temp Pulse Resp B/P (MAP) Pulse Ox O2 Delivery O2 Flow Rate FiO2 10/10/20 13:15 97.7 85 18 97 Room Air 10/10/20 11:00 134/82 (99) Laboratory Data 24H LABS Laboratory Tests 2 10/10/20 08:17: Immature Granulocyte % (Auto) 0.3, Neutrophils (%) (Auto) 73.2H, Lymphocytes (%) (Auto) 19.6L, Monocytes (%) (Auto) 5.6, Eosinophils (%) (Auto) 0.9, Basophils (%) (Auto) 0.4, Neutrophils # (Auto) 7.6, Lymphocytes # (Auto) 2.0, Monocytes # (Auto) 0.6, Eosinophils # (Auto) 0.1, Basophils # (Auto) 0.0, Nucleated Red Blood Cells % (auto) 0.0, Lactic Acid Level 1.5, Total Bilirubin 0.4, Direct Bilirubin 0.1, Aspartate Amino Transf (AST/SGOT) 19, Alanine Aminotransferase (ALT/SGPT) 24, Alkaline Phosphatase 79, C-Reactive Protein, Quantitative 7.03H, Total Protein 8.0, Albumin 3.9, Albumin/Globulin Ratio 1.0, Lipase 61L 10/10/20 08:18: POC Glucose (Misc Panel) 100, POC Sodium (Misc Panel) 140, POC Potassium (Misc Panel) 3.6, POC Chloride (Misc Panel) 97L, POC Total CO2 (Misc Panel) 29.0H, POC Blood Urea Nitrogen (Misc Panel 9, POC Ionized Calcium (Misc Panel) 4.9, POC Creatinine (Misc Panel) 1.0, POC Hematocrit (Misc Panel) 44.0 10/10/20 08:37: Coronavirus (COVID-19)(PCR) NEGATIVE 10/10/20 09:50: Urine Color YELLOW, Urine Appearance CLOUDYH, Urine pH 6.0, Urine Specific [place] 1.015, Urine Protein 1+H, Urine Glucose (UA) NEGATIVE, Urine Ketones NEGATIVE, Urine Blood 1+H, Urine Nitrite NEGATIVE, Urine Bilirubin NEGATIVE, Urine Urobilinogen 0.2, Urine Leukocyte Esterase 3+H, Urine WBC (Auto) 176H, Urine RBC (Auto) 14H, Urine Hyaline Casts (Auto) 0, Urine Bacteria (Auto) NEGATIVE, Urine Squamous Epithelial Cells 0, Urine Yeast-Like Cells (Auto) SM ALLH, Urine Sperm (Auto) 10/10/20 12:03: Prothrombin Time 13.3, Prothromb Time International Ratio 0.99, Activated Partial Thromboplast Time 33.7 CBC/BMP Laboratory Tests 10/10/20 08:17 Microbiology Microbiology 10/10/20 Urine Culture, Received Pending 10/10/20 Blood Culture, Received Pending 10/10/20 Blood Culture, Received Pending BERTO STOREY MD Oct 10, 2020 15:01
[2020-10-10] MEDS ORDERED: MEPERIDINE INJ 25 MG/ML VIAL (J2175) IV PRN (16:05)
[2020-10-10] MEDS ORDERED: fentaNYL 100 MCG/2 ML INJECTION (J3010) IV PRN (16:05)
[2020-10-10] MEDS ORDERED: oxyCODONE 5MG TAB PO PRN (16:05)
[2020-10-10] MEDS ORDERED: LR 1,000 ML IV SCH (16:05)
[2020-10-10 17:00] VITALS: BP 134/72
[2020-10-10] MEDS: KETOROLAC 30 MG/ML 1ML VIAL IV PRN (18:06)
[2020-10-10] MEDS ORDERED: LIDOCAINE 2% 5ML JELLY UROJET TOP ONE (18:10)
[2020-10-10 22:00] VITALS: BP 126/83
[2020-10-11] MEDS: KETOROLAC 30 MG/ML 1ML VIAL IV PRN (05:30)
[2020-10-11] MEDS: NS 1,000 ML IV SCH (05:30)
[2020-10-11 05:36] VITALS: BP 141/97
--- NOTE | 2020-10-11 08:03 | IPNPDOC ---
Date Seen The patient was seen on 10/11/20. Progress Note pt seen and examined this morning s/p right nephrostomy tube placement yesterday by IR - thank you to IR for helping pt looks fine this morning states he had a decent night but then pain started this morning tube draining clear urine from a gu standpoint, pt can be discharged with tube to gravity stone surgery (ureteroscopy) in the future suggest home on oral antibiotic thank you cell [phone] VS, I&O, 24H, Fishbone Vital Signs/I&O Vital Signs Date Time Temp Pulse Resp B/P (MAP) Pulse Ox O2 Delivery O2 Flow Rate FiO2 10/10/20 22:00 98.1 80 19 126/83 (97) 95 Room Air 10/10/20 16:17 2.0 I&O- Last 24 Hours up to 6 AM 10/11/20 06:00 Intake Total 2740 ml Output Total 1325 ml Balance 1415 ml Laboratory Data 24H LABS Laboratory Tests 2 10/10/20 08:17: Immature Granulocyte % (Auto) 0.3, Neutrophils (%) (Auto) 73.2H, Lymphocytes (%) (Auto) 19.6L, Monocytes (%) (Auto) 5.6, Eosinophils (%) (Auto) 0.9, Basophils (%) (Auto) 0.4, Neutrophils # (Auto) 7.6, Lymphocytes # (Auto) 2.0, Monocytes # (Auto) 0.6, Eosinophils # (Auto) 0.1, Basophils # (Auto) 0.0, Nucleated Red Blood Cells % (auto) 0.0, Lactic Acid Level 1.5, Total Bilirubin 0.4, Direct Bilirubin 0.1, Aspartate Amino Transf (AST/SGOT) 19, Alanine Aminotransferase (ALT/SGPT) 24, Alkaline Phosphatase 79, C-Reactive Protein, Quantitative 7.03H, Total Protein 8.0, Albumin 3.9, Albumin/Globulin Ratio 1.0, Lipase 61L 10/10/20 08:18: POC Glucose (Misc Panel) 100, POC Sodium (Misc Panel) 140, POC Potassium (Misc Panel) 3.6, POC Chloride (Misc Panel) 97L, POC Total CO2 (Misc Panel) 29.0H, POC Blood Urea Nitrogen (Misc Panel 9, POC Ionized Calcium (Misc Panel) 4.9, POC Creatinine (Misc Panel) 1.0, POC Hematocrit (Misc Panel) 44.0 10/10/20 08:37: Coronavirus (COVID-19)(PCR) NEGATIVE 10/10/20 09:50: Urine Color YELLOW, Urine Appearance CLOUDYH, Urine pH 6.0, Urine Specific [place] 1.015, Urine Protein 1+H, Urine Glucose (UA) NEGATIVE, Urine Ketones NEGATIVE, Urine Blood 1+H, Urine Nitrite NEGATIVE, Urine Bilirubin NEGATIVE, Urine Urobilinogen 0.2, Urine Leukocyte Esterase 3+H, Urine WBC (Auto) 176H, Urine RBC (Auto) 14H, Urine Hyaline Casts (Auto) 0, Urine Bacteria (Auto) NEGATIVE, Urine Squamous Epithelial Cells 0, Urine Yeast-Like Cells (Auto) SMALLH, Urine Sperm (Auto) 10/10/20 12:03: Prothrombin Time 13.3, Prothromb Time International Ratio 0.99, Activated Parti al Thromboplast Time 33.7 CBC/BMP Laboratory Tests 10/10/20 08:17 Microbiology Microbiology 10/10/20 Urine Culture, Received Pending 10/10/20 Blood Culture, Received Pending 10/10/20 Blood Culture, Received Pending MARK PARSONS MD Oct 11, 2020 08:03
[2020-10-11] MEDS ORDERED: METHADONE 10 MG TAB (S0109) PO SCH (09:00)
[2020-10-11] MEDS ORDERED: NICOTINE 21MG/24HR 1 EA TRANSDERMAL TD SCH (09:00)
[2020-10-11 09:20] LABS: HEMATOCRIT 39.8 % (42.0-52.0); MEAN CORPUSCULAR HEMOGLOBIN 30.8 pg (27.0-33.0); MEAN CORPUSCULAR HGB CONC 32.7 g/dl (32.0-36.5); MEAN CORPUSCULAR VOLUME 94.3 fl (80.0-96.0); PLATELET COUNT, AUTOMATED 209 10^3/uL (150-450); RED BLOOD COUNT 4.22 10^6/uL (4.30-6.10); WHITE BLOOD COUNT 9.5 10^3/uL (4.0-10.0)
[2020-10-11 09:36] LABS: BLOOD UREA NITROGEN 9 MG/DL (7-18); CARBON DIOXIDE LEVEL 30 MEQ/L (21-32); CHLORIDE LEVEL 107 MEQ/L (98-107); CREATININE FOR GFR 0.97 MG/DL (0.70-1.30); GLOMERULAR FILTRATION RATE > 60.0 (>60); GLUCOSE, FASTING 156 MG/DL (70-100); POTASSIUM SERUM 4.3 MEQ/L (3.5-5.1); SODIUM LEVEL 140 MEQ/L (136-145)
[2020-10-11] MEDS: CIPROFLOXACIN 400 MG in IV 1 EA IV SCH (10:19)
--- NOTE | 2020-10-11 11:08 | IRPON ---
IR Postoperative Note Date Of Procedure: Oct 10, 2020 Time Of Procedure: 16:00 IR Postoperative Note IR Percutaneous internal/external nephroureteral stent placement using fluoroscopic and ultrasound guidance. IR Nephrostogram and Ureterogram. IR Ultrasound of the right kidney. Clinical Information: Right kidney stone. UPJ obstruction. Hydronephrosis. Physician: Dr. Anderson. Procedure: The patient was advised of the benefits, risks, and alternatives of the procedure and informed consent was obtained. A time out was performed with verification of the patient's name, MRN, site of procedure, and type of procedure to be performed. The patient was positioned in the prone position on the angiographic table. The site was prepped and draped in the usual sterile fashion. Anesthesia was performed by the anesthesia team. I spent 45 minutes of continuous [id number] time with the patient. A strength and conditioning coach radiograph reveals radiopaque density in the region of known right kidney stone. The anticipated puncture site on the flank was anesthetized with lidocaine. Using ultrasound guidance, a lower pole calyx was accessed with a 21 Gauge Chiba needle. A nephrostogram and ureterogram were performed demonstrating hydronephrosis and partially obstructive stone at the ureteropelvic junction. A [place] wire was then advanced into the collecting system, manipulated around the stone and advanced down the ureter, under fluoroscopy guidance. The needle was then exchanged for a nonvascular introducer set.Injection of contrast confirmed intraureteral location without extravasation. An Amplatz wire was then advanced into the ureter, under fluoroscopy guidance and down into the bladder. This sheath was removed over the wire. An 8 Persian nephroureteral catheter was then advanced, over the wire and under fluoroscopy guidance into the renal collecting system, down the ureter and into the bladder. The pigtail was formed and locked in position. A final nephrostogram and ureterogram were performed confirming positioning of the nephroureteral catheter. No extravasation.Beyond the UPJ stone, the ureter is patent to the urinary bladder. The catheter was sutured in position with 2-0 Prolene and a sterile dressing applied. The catheter was placed to gravity drainage. The patient tolerated the procedure well and was returned to the PRU in stable condition. EBL: < 5 mL. Complications:None. Conclusion: 1. Nephrostogram and Ureterogram demonstrateUPJ stone causing partial obstruction to drainage from the right kidney resulting in hydronephrosis. 2. Successful right nephroureteral catheter placement. Catheter to drain to gravity for the next 48-72 hours for treatment of pyelonephritis. Once patient is pain-free, the catheter may be capped for internal drainage. Patient to follow-up with urology for stone removal procedure. 3. Right nephroureteral catheter requires daily flushing with 10 ml of sterile saline. Patient to follow-up in IR in 2 weeks. Thank you for this referral. Cc BERTO Harrison MD Oct 11, 2020 11:08
--- NOTE | 2020-10-11 11:51 | IPNPDOC ---
Text Note Date of Service The patient was seen on 10/11/20. NOTE Subjective: -POD1 s/p nephrostomy insertion by IR, draining well, pain well controlled Objective: VITAL SIGNS: see below GENERAL APPEARANCE: NAD HEENT: NCAT, EOMI, PERRLA, MMM CARDIOVASCULAR: RRR, no m/r/g LUNGS: CTAB ABDOMEN: Normoactive sounds, tender right flank with nephrostomy bag with clear yellow urine, no guarding EXTREMITIES: WWP, no LE edema NEUROLOGICAL: CN3-12 intact, grossly nonfocal PSYCHIATRIC: AOx3 LABORATORY DATA: Reviewed, with pending AM labs MICROBIOLOGY: Please see below. ASSESSMENT: 35 yo M with a history of kidney stone and PSUD who is being admitted to medicine with sepsis 2/2 pyelonephritis with ongoing obstructive uropathy, pending urology evaluation for possible stent placement. Plan: Sepsis 2/2 pyelonephritis: -IV cipro -positive UA, follow up UCx -follow up BCx -tolerating regular diet, will dc fluids at this time -tylenol and PRN toradol for pain Obstructing ureteropelvic junction stone: -urology consulted, recommended IR nephrostomy placement which he is now POD1 from nephrostomy placement. -toradol 30Q6HP for severe pain PSUD: -recently using, on methadone, continued 90mg QD DVT ppx; TEDs and SCDs VS,Fishbone, I+O VS, Fishbone, I+O Laboratory Tests 10/10/20 08:17 Vital Signs Date Time Temp Pulse Resp B/P (MAP) Pulse Ox O2 Delivery O2 Flow Rate FiO2 10/10/20 22:00 98.1 80 19 126/83 (97) 95 Room Air 10/10/20 16:17 2.0 I&O- Last 24 Hours up to 6 AM 10/11/20 06:00 Intake Total 2740 ml Output Total 1325 ml Balance 1415 ml REMA HARE MD Oct 11, 2020 08:04
[2020-10-11] MEDS ORDERED: KETO10TAB PO (11:56)
[2020-10-11] MEDS ORDERED: CIPR-249 PO (11:56)
[2020-10-11] MEDS ORDERED: ACET1TAB55 PO (11:56)
--- NOTE | 2020-10-11 12:09 | DS.PDOC ---
Discharge Summary General Date of Admission Oct 10, 2020 at 09:19 Date of Discharge 10/11/2020 Attending Physician: REMA HARE MD Discharge Summary PROCEDURES PERFORMED DURING STAY: IR Percutaneous internal/external nephroureteral stent placement using fluoroscopic and ultrasound guidance on 10/10/2020 ADMITTING DIAGNOSES: Pyelonephritis Obstructing R UPJ stone DISCHARGE DIAGNOSES: Pyelonephritis Obstructing R UPJ stone R hydronephrosis Hep C infection, untreated, follows with Dr. Batres, was just diagnosed in 03/2020 with acute infection PSUD recently on methadone, however using COMPLICATIONS/CHIEF COMPLAINT: Hydronephrosis W/ Obstructing Calculus, Polysubsta. HISTORY OF PRESENT ILLNESS: 35yo M with a history of kidney stones, Hep C infection, PSUD recently on methadone but also currently relapsed and using illicit drugs who was originally admitted for R UPJ obstructing stone with hydronephrosis and pyelonephritis with sepsis after he presented with acute dysuria, hematuria, flank pain, sweats and chills, nausea and dizziness but left AMA and then returned the next day with the same complaints. HOSPITAL COURSE: Initial workup was notable for leukocytosis to 17.2, Hgb 14.1, platelets 227, na 136, K 3.7,Cr 0.95, lipase 35, LFTs wnl, while UA was turbid with 3+ leukocyte esterase, with TNTC WBCs adn 84 RBCs, and tox screen was positive for methadone, amphetamines and cannabinoids. CT A/P revealed a 15mm ureteropelvic junciton stone with R hydronephrosis with striated nephrogenic appearance. The ED provider kiersten BCx and gave 1L NS and a dose of ceftriaxone and consulted urology that recommended making him NPO for stent placement immediately. He was admitted to medicine for sepsis with ongoing pyelonephritis with urology consulted for obstructive uropathy but left AMA. He apparently went [facility] for the same, and was given cipro and ceftin and recommended to re-present to [facility] for urology evaluation and thus his return. On re-presentation WBC was down to 10.4, hgb 14.7, platelets 249, CRP 7.03 and BMP grossly unremarkable and was admitted to medicine and urology ultimately recommended nephrostomy placement by IR that was done on 10/10/2020 and started on cipro for pyelonephritis and is now being discharged home with plan for prompt PCP and urology follow up for eventual stone surgery (ureteroscopy) in the future. He is now being discharged home with a course of cipro and PRN toradol with close PCP and urology follow up. DISCHARGE MEDICATIONS: Please see below. ALLERGIES: Please see below. PHYSICAL EXAMINATION ON DISCHARGE: VITAL SIGNS: Please see below. GENERAL APPEARANCE: NAD HEENT: NCAT, EOMI, PERRLA, MMM CARDIOVASCULAR: RRR, no m/r/g LUNGS: CTAB ABDOMEN: Normoactive sounds, has R nephrostomy tube now draining clear yellow urine, site c/d/i no erythema or drainage EXTREMITIES: WWP, no LE edema NEUROLOGICAL: CN3-12 intact, grossly nonfocal PSYCHIATRIC: AOx3 LABORATORY DATA: Please see below. IMAGING: Renal US: Right kidney measures 10.1 x 5.1 x 5.1 cm and demonstrates moderate hydronephrosis unchanged compared to CT. The obstructing calculus in the ureteropelvic junction is not visible. The left kidney is normal and measures 10.4 x 6.6 x 5.0 cm. The bladder is normal. IMPRESSION: 1. Moderate right hydronephrosis consistent with findings on recent CT. No significant change. The obstructing calculus is not identified by ultrasound. CT A/P: Preliminary digital car starter radiograph demonstrates a large right mid abdominal calculus and a loop of air-filled mildly dilated central abdominal small bowel which may reflect mild ileus. The lung bases remain clear on axial CT images. The liver and the spleen normal in size homogeneous in texture. No abnormality is noted in the gallbladder. Normal adrenal glands are seen. There is no evidence of left-sided hydronephrosis or intrarenal calculus on the left. On the right there is moderate intrarenal hydronephrosis again seen as noted on yesterday's contrast enhanced CT study. There is an intrarenal calculus in the lower pole collecting system the right kidney measuring 3 mm. In addition, there is a large obstructing calculus in the renal pelvis at the ureteropelvic junction. This measures 1.9 cm in greatest diameter on sagittal MPR images. There is mild Yvonne nephric edema. No extra renal fluid collection is observed. Normal appendix is seen. There are 2 or 3 prostate calcifications. Urinary bladder and seminal vesicles are unremarkable. On bone window settings, incidental note is made of a broad-based central focal disc protrusion at the L1-2 disc with calcification of the disc margin. This appears to indent the ventral aspect of the spinal canal. IMPRESSION: Persistent moderate right-sided hydronephrosis due to an obstructing 1.9 cm right renal pelvic calculus. There is also a small intrarenal calculus on the right. There is a broad-based L1-2 central posterior disc protrusion noted incidentally. PROGNOSIS: Good ACTIVITY: As tolerated DIET: Regular DISCHARGE PLAN: Home with close urology and PCP follow up with 7d of cipro and 5d of PRN toradol. DISPOSITION: Home DISCHARGE INSTRUCTIONS: Home with close urology and PCP follow up with 7d of cipro and 5d of PRN toradol. IR within 2w. ITEMS TO FOLLOWUP ON ON OUTPATIENT: Large R UPJ stone s/p nephrostomy Pyelonephritis DISCHARGE CONDITION: Stable TIME SPENT ON DISCHARGE: 45 minutes. Vital Signs/I&Os Vital Signs Date Time Temp Pulse Resp B/P (MAP) Pulse Ox O2 Delivery O2 Flow Rate FiO2 10/11/20 05:36 71 21 141/97 (112) 95 Room Air 10/10/20 22:00 98.1 10/10/20 16:17 2.0 I&O- Last 24 Hours up to 6 AM 10/11/20 06:00 Intake Total 3100 ml Output Total 1700 ml Balance 1400 ml Laboratory Data Labs 24H Laboratory Tests 2 10/10/20 12:03: Prothrombin Time 13.3, Prothromb Time International Ratio 0.99, Activated Partial Thromboplast Time 33.7 10/11/20 08:54: Nucleated Red Blood Cells % (auto) 0.0, Anion Gap 3L, Glomerular Filtration Rate > 60.0, Calcium Level 9.0, Magnesium Level 2.0 CBC/BMP Laboratory Tests 10/11/20 08:54 Microbiology Microbiology 10/10/20 Urine Culture - Final, Complete 10/10/20 Blood Culture - Preliminary, Resulted No growth after 24 hours . All specim... 10/10/20 Blood Culture - Preliminary, Resulted No growth after 24 hours . All specim... Discharge Medications Scheduled Ciprofloxacin HCl (Cipro) 500 Mg Tablet, 1 TAB PO BID Methadone HCl (Methadone HCl) 10 Mg/1 Ml Oral.conc, 90 MG PO DAILY, (Reported) VERIFIED WITH CREDO Scheduled PRN Acetaminophen (Acetaminophen) 325 Mg Tablet, 650 MG PO Q4H PRN for MILD PAIN or TEMP > 101 Ketorolac Tromethamine (Ketorolac Tromethamine) 10 Mg Tablet, 1 TAB PO Q6HP PRN for pain Allergies Coded Allergies: No Known Allergies (Unverified , 02/03/17) REMA HARE MD Oct 11, 2020 12:03
== END 2020-10-11 14:55 | disposition home or self-care (01) | DRG 710 ==
LOC: M ED 07:17 → M ED INP 09:19 → ENRESERV 10:03 → M MS5PR 10:55
PROVIDERS: ADMIT Internal Medicine; ATTEND Internal Medicine
PROC: 0T9030Z Drainage of Right Kidney with Drainage Device, Percutaneous Approach (ICD-10-PCS; principal; 2020-10-10 13:30)
DX: A41.9 Sepsis, unspecified organism (principal); N13.6 Pyonephrosis; F19.10 Other psychoactive substance abuse, uncomplicated; N13.0 Hydronephrosis with ureteropelvic junction obstruction; Z20.822 Contact with and (suspected) exposure to COVID-19; Z79.899 Other long term (current) drug therapy; B19.20 Unspecified viral hepatitis C without hepatic coma

== ENCOUNTER → 2020-10-28 | Outpatient (CLI) | payer OTHER ==
[~2020-10-28] MED LIST changes: +ACET1TAB55 PO; +CEFU1TAB20 PO; +CIPR-249 PO; +KETO10TAB PO
== END ==
LOC: M LABSMTC 12:22
PROVIDERS: ATTEND Anesthesiology
DX: Z01.812 Encounter for preprocedural laboratory examination (principal); Z20.822 Contact with and (suspected) exposure to COVID-19

== ENCOUNTER → 2020-10-31 | Outpatient (CLI) | payer OTHER ==
[~2020-10-31] MED LIST changes: +OXYC1TAB23 PO
[2020-10-31 12:12] LABS: HEMATOCRIT 46.6 % (42.0-52.0); HEMOGLOBIN 15.1 g/dl (13.5-17.5); MEAN CORPUSCULAR HEMOGLOBIN 30.3 pg (27.0-33.0); MEAN CORPUSCULAR HGB CONC 32.4 g/dl (32.0-36.5); MEAN CORPUSCULAR VOLUME 93.4 fl (80.0-96.0); PLATELET COUNT, AUTOMATED 404 10^3/uL (150-450); RED BLOOD COUNT 4.99 10^6/uL (4.30-6.10); WHITE BLOOD COUNT 9.2 10^3/uL (4.0-10.0)
[2020-10-31 12:41] LABS: ALBUMIN 3.9 GM/DL (3.2-5.2); ALT/SGPT 24 U/L (12-78); BILIRUBIN,TOTAL 0.2 MG/DL (0.2-1.0); BLOOD UREA NITROGEN 15 MG/DL (7-18); CALCIUM LEVEL 10.2 MG/DL (8.5-10.1); CARBON DIOXIDE LEVEL 31 MEQ/L (21-32); CHLORIDE LEVEL 104 MEQ/L (98-107); CREATININE FOR GFR 1.03 MG/DL (0.70-1.30); GLOMERULAR FILTRATION RATE > 60.0 (>60); GLUCOSE, FASTING 92 MG/DL (70-100); SODIUM LEVEL 141 MEQ/L (136-145); TOTAL PROTEIN 8.1 GM/DL (6.4-8.2)
--- NOTE | 2020-10-31 13:51 | REP ---
INDICATION: CALCULUS OF URETER/LABS 1ST, EKG 2ND, XRAY 3RD COMPARISON: 07/17/2010. TECHNIQUE: PA/Lateral FINDINGS: Lungs: Clear, no infiltrate. Heart: Normal in size. Mediastinum: Mediastinal silhouette unremarkable. Pleural angles: Unremarkable.. Bones and soft tissues: A nephrostomy tube projects in the region of the right flank. IMPRESSION: No acute pulmonary disease. <Electronically signed by Buck Deutsch > 10/31/20 [id number]
--- NOTE | 2020-10-31 22:26 | ECGEPIP ---
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 No remarkable changes Electronically Signed on 10-31-2020 22:25:52 EDT by Steven Scanlon
== END ==
LOC: M LAB 11:16
PROVIDERS: ATTEND Urology
DX: N20.1 Calculus of ureter (principal); F19.10 Other psychoactive substance abuse, uncomplicated

== ENCOUNTER → 2020-11-10 | Outpatient (REF) | payer OTHER ==
[2020-11-10 13:46] LABS: APPEARANCE, URINE CLOUDY (CLEAR); BACTERIA, URINE AUTO 1+ (NEGATIVE); BILIRUBIN, URINE AUTO NEGATIVE (NEGATIVE); BLOOD, URINE BLOOD 2+ (NEGATIVE); COLOR, URINE YELLOW (YELLOW); GLUCOSE, URINE (UA) AUTO NEGATIVE (NEGATIVE); KETONE, URINE AUTO NEGATIVE (NEGATIVE); LEUKOCYTE ESTERASE, URINE AUTO 3+ (NEGATIVE); NITRITE, URINE AUTO NEGATIVE (NEGATIVE); PROTEIN, URINE AUTO 3+ mg/dL (NEGATIVE); RBC, URINE AUTO 130 /HPF (0-3); SPECIFIC GRAVITY URINE AUTO 1.015 (1.002-1.035); SQUAMOUS EPITHELIAL CELL UR AU 0 /HPF (0-6); UROBILINOGEN, URINE AUTO 0.2 mg/dL (0.0-2.0); WBC, URINE AUTO TNTC /HPF (0-3)
== END ==
LOC: M SMT 13:18
PROVIDERS: ATTEND Urology
DX: N39.0 Urinary tract infection, site not specified (principal)

== ENCOUNTER → 2020-11-12 | Outpatient (CLI) | payer OTHER ==
--- NOTE | 2020-11-12 11:31 | REP ---
INDICATION: CALCULUS OF KIDNEY WITH CALCULUS OF URETER. COMPARISON: Acute abdominal series, 07/17/2010. TECHNIQUE: Three supine images of the abdomen were performed. FINDINGS: There is a right nephroureteral stent present in good position. There is a cluster of punctate stones at the right ureteropelvic junction measuring 16 x 10 mm. There are a few minute stones seen in the lower pole calices of the right kidney. There is stool throughout the colon. There are no bony abnormalities. IMPRESSION: 1. Right-sided nephroureteral stent in good position. 2. Cluster of stones at the right UPJ. 3. There are a few minute stones in the lower pole calices of the right kidney. 4. Mild constipation. <Electronically signed by Bethel Rizvi > 11/12/20 [id number]
== END ==
LOC: M RAD 09:54
DX: N20.0 Calculus of kidney (principal); Z96.0 Presence of urogenital implants

== ENCOUNTER → 2020-11-16 | Outpatient (CLI) | payer OTHER | LOC: M LABSMTC 11:32 | PROVIDERS: ATTEND Anesthesiology | DX: Z01.812 Encounter for preprocedural laboratory examination (principal); Z20.822 Contact with and (suspected) exposure to COVID-19 ==

== ENCOUNTER → 2020-12-05 | Outpatient (CLI) | payer OTHER ==
[~2020-12-05] MED LIST changes: +BACT800T5 PO; +HYDR-3713 PO; +OXYB5TAB10 PO; +PYRI1TAB5 PO
--- NOTE | 2020-12-05 18:11 | REP ---
INDICATION: CALCULUS OF KIDNEY COMPARISON: 11/12/2020 TECHNIQUE: Supine view of the abdomen and pelvis. FINDINGS: Right ureteral stent in satisfactory position. Small residual right nephroureteroliths cannot be excluded. Bowel gas pattern is nonspecific. No organomegaly. Skeletal structures intact. IMPRESSION: Right ureteral stent in satisfactory position. Small residual calculi cannot be excluded. <Electronically signed by Abel Rodriguez > 12/05/20 [id number]
== END ==
LOC: M RAD 17:51
PROVIDERS: ATTEND Urology
DX: N20.0 Calculus of kidney (principal); Z96.0 Presence of urogenital implants

== ENCOUNTER → 2021-02-06 | Outpatient (CLI) | payer OTHER ==
[~2021-02-06] MED LIST changes: +DOXY-443 PO; -DOXY1CAP62 PO
[2021-02-06 15:20] LABS: HEMATOCRIT 42.6 % (42.0-52.0); HEMOGLOBIN 14.4 g/dl (13.5-17.5); MEAN CORPUSCULAR HEMOGLOBIN 31.2 pg (27.0-33.0); MEAN CORPUSCULAR HGB CONC 33.8 g/dl (32.0-36.5); MEAN CORPUSCULAR VOLUME 92.2 fl (80.0-96.0); PLATELET COUNT, AUTOMATED 222 10^3/uL (150-450); RED BLOOD COUNT 4.62 10^6/uL (4.30-6.10)
[2021-02-06 15:44] LABS: ALBUMIN 3.7 GM/DL (3.2-5.2); ALT/SGPT 42 U/L (12-78); BILIRUBIN,TOTAL 0.3 MG/DL (0.2-1.0); BLOOD UREA NITROGEN 15 MG/DL (7-18); CALCIUM LEVEL 9.6 MG/DL (8.5-10.1); CARBON DIOXIDE LEVEL 36 MEQ/L (21-32); CHLORIDE LEVEL 102 MEQ/L (98-107); CREATININE FOR GFR 1.14 MG/DL (0.70-1.30); GLOMERULAR FILTRATION RATE > 60.0 (>60); GLUCOSE, FASTING 80 MG/DL (70-100); POTASSIUM SERUM 4.1 MEQ/L (3.5-5.1); SODIUM LEVEL 140 MEQ/L (136-145)
[2021-02-06 16:01] LABS: HEPATITIS B SURFACE ANTIGEN NEGATIVE (NEGATIVE)
[2021-02-06 16:29] LABS: HIV 1&2 SCREEN CENTAUR NEGATIVE (NEGATIVE)
[2021-02-06 16:38] LABS: HEPATITIS C VIRUS ABY INDEX > 11.0 INDEX (<0.8)
[2021-02-06 18:46] LABS: GC DNA AMPLIFICATION NEGATIVE (NEGATIVE)
--- NOTE | 2021-02-06 21:19 | ECGEPIP ---
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 No remarkable changes Electronically Signed on 02-06-2021 21:19:27 EDT by Steven Scanlon
[2021-02-09 19:07] LABS: HEPATITIS C QUANTITATION 25100 IU/mL (.)
== END ==
LOC: M LAB 13:47
PROVIDERS: ATTEND Family Medicine
DX: F11.20 Opioid dependence, uncomplicated (principal)

== ENCOUNTER → 2021-02-22 | Outpatient (REF) | LOC: M EMP 11:37 | PROVIDERS: ATTEND Family Medicine | DX: Z11.52 Encounter for screening for COVID-19 (principal) ==

== ENCOUNTER → 2021-02-22 | Outpatient (REF) | LOC: M EMP 11:49 | PROVIDERS: ATTEND Family Medicine | DX: Z11.52 Encounter for screening for COVID-19 (principal) ==

== ENCOUNTER → 2021-08-31 | Outpatient (CLI) | payer OTHER | LOC: M RAD 17:54 | PROVIDERS: ATTEND Physician Assistant | DX: R10.819 Abdominal tenderness, unspecified site (principal); Z87.442 Personal history of urinary calculi ==

== ENCOUNTER → 2021-08-31 | Outpatient (REF) | payer OTHER | LOC: M LAB REF 16:39 | PROVIDERS: ATTEND Physician Assistant | DX: R30.0 Dysuria (principal) ==

== ENCOUNTER 2021-11-20 02:32 | Emergency (ER) | payer OTHER ==
[~2021-11-20] VITALS: Ht 157.5 cm; Wt 68.5 kg
[2021-11-20 02:58] VITALS: BP 137/90
[2021-11-20] MEDS ORDERED: IBUPROFEN 600MG TAB PO ONE (03:10)
== END 2021-11-20 04:09 | disposition left against medical advice (07) ==
LOC: M ED 02:32 → EDBD 02:32 → M ED 04:09
DX: Z53.21 Procedure and treatment not carried out due to patient leaving prior to being seen by health care provider (principal)

== ENCOUNTER → 2021-12-13 | Outpatient (CLI) | payer OTHER | LOC: M RAD 10:12 | PROVIDERS: ATTEND Physician Assistant Medical | DX: M25.511 Pain in right shoulder (principal) ==

== ENCOUNTER → 2022-01-26 | Outpatient (CLI) | payer OTHER ==
[2022-01-26 14:07] LABS: HEMATOCRIT 41.1 % (42.0-52.0); HEMOGLOBIN 13.4 g/dl (13.5-17.5); MEAN CORPUSCULAR HEMOGLOBIN 30.4 pg (27.0-33.0); MEAN CORPUSCULAR HGB CONC 32.6 g/dl (32.0-36.5); MEAN CORPUSCULAR VOLUME 93.2 fl (80.0-96.0); PLATELET COUNT, AUTOMATED 267 10^3/uL (150-450); RED BLOOD COUNT 4.41 10^6/uL (4.30-6.10); WHITE BLOOD COUNT 7.3 10^3/uL (4.0-10.0)
[2022-01-26 14:59] LABS: ALBUMIN 3.7 GM/DL (3.2-5.2); ALT/SGPT 30 U/L (12-78); BILIRUBIN,TOTAL 0.3 MG/DL (0.2-1.0); BLOOD UREA NITROGEN 18 MG/DL (7-18); CALCIUM LEVEL 9.7 MG/DL (8.5-10.1); CARBON DIOXIDE LEVEL 35 MEQ/L (21-32); CHLORIDE LEVEL 102 MEQ/L (98-107); CREATININE FOR GFR 1.26 MG/DL (0.70-1.30); GLOMERULAR FILTRATION RATE > 60.0 (>60); GLUCOSE, FASTING 85 MG/DL (70-100); POTASSIUM SERUM 3.8 MEQ/L (3.5-5.1); SODIUM LEVEL 141 MEQ/L (136-145)
[2022-01-26 15:38] LABS: GC DNA AMPLIFICATION NEGATIVE (NEGATIVE)
[2022-01-26 15:47] LABS: HEPATITIS B SURFACE ANTIGEN NEGATIVE (NEGATIVE)
[2022-01-26 16:12] LABS: HIV 1&2 SCREEN CENTAUR NEGATIVE (NEGATIVE)
[2022-01-26 16:22] LABS: HEPATITIS C VIRUS ABY INDEX > 11.0 INDEX (<0.8)
== END ==
LOC: M LAB 11:47
PROVIDERS: ATTEND Family Medicine
DX: F11.20 Opioid dependence, uncomplicated (principal)

== ENCOUNTER 2023-11-19 10:01 | Emergency (ER) | payer OTHER ==
[~2023-11-19 10:01] MED LIST changes: +DOXY-323 PO; -DOXY-443 PO; -OXYB5TAB10 PO; +OXYB5TAB14 PO
== END 2023-11-19 10:13 | disposition left against medical advice (07) ==
LOC: EDBD 10:01 → M ED 10:01
DX: Z53.21 Procedure and treatment not carried out due to patient leaving prior to being seen by health care provider (principal)